=== PATIENT | male | born 1940 | race Caucasian/White ===

== ENCOUNTER 2017-04-25 09:02 | Emergency (ER) | payer MEDICARE, BC ==
[2017-04-25] MEDS ORDERED: Albuterol 0.083% 2.5 MG/3 ML Neb Soln NEB ONE (09:52)
--- NOTE | 2017-04-25 09:53 | EDM.PDOC ---
ED HPI GENERAL MEDICAL PROBLEM - General Chief Complaint: Respiratory Problem Stated Complaint: TROUBLE BREATHING Time Seen by Provider: 04/25/17 09:52 Source of Information: Reports: Patient History Limitations: Reports: No Limitations - History of Present Illness INITIAL COMMENTS - FREE TEXT/NARRATIVE: pt arrived with a history of being sob since his arrival for the summer. As soon as he arrived he was stuffed up and had periods of wheezing. Onset: Gradual Duration: Day(s): Location: Reports: Chest Associated Symptoms: Reports: Cough, Shortness of Breath - Related Data Allergies Allergy/AdvReac Type Severity Reaction Status Date / Time blue dye Allergy Intermediate Rash Verified 04/09/14 10:51 red dye Allergy Intermediate Rash Verified 04/09/14 10:50 tomato [Tomato] Allergy Intermediate Hives Verified 04/09/14 10:51 yellow dye Allergy Intermediate Rash Verified 04/09/14 10:51 Home Meds: Home Meds Bimatoprost [LUMIGAN 0.01% Ophth Soln] 1 drop EYELF BEDTIME 04/09/14 [History] Fexofenadine HCl [Ale Allergy] 60 mg PO ASDIRECTED 04/25/17 [History] Ibuprofen [Motrin] 800 mg PO ASDIRECTED 04/25/17 [History] Past Medical History HEENT History: Reports: Impaired Vision - Infectious Disease History Infectious Disease History: Reports: Chicken Pox, Measles - Past Surgical History GI Surgical History: Reports: Hernia Repair/Other Musculoskeletal Surgical History: Reports: Other (See Below) Other Musculoskeletal Surgeries/Procedures:: BACK SURGERY Social & Family History - Tobacco Use Smoking Status *Q: Former Smoker Used Tobacco, but Quit: Yes Month Tobacco Last Used: MANY YEARS AGO Second Hand Smoke Exposure: No - Caffeine Use Caffeine Use: Reports: Coffee, Soda - Alcohol Use Days Per Week of Alcohol Use: 1 Number of Drinks Per Day: 1 Total Drinks Per Week: 1 - Recreational Drug Use Recreational Drug Use: No ED ROS GENERAL - Review of Systems Review Of Systems: See Below Constitutional: Reports: No Symptoms HEENT: Reports: Other ( nose is very stuffed up. ) Respiratory: Reports: Shortness of Breath, Wheezing Cardiovascular: Reports: No Symptoms Endocrine: Reports: No Symptoms GI/Abdominal: Reports: No Symptoms : Reports: No Symptoms ED EXAM, GENERAL - Physical Exam Exam: See Below Free Text/Narrative:: pt has been more sob and wheezy since he arrived here this spring. He has not been running a temp. Exam Limited By: No Limitations General Appearance: Alert, Mild Distress Ears: Normal TMs Nose: Normal Inspection Throat/Mouth: Normal Inspection Head: Atraumatic Neck: Normal Inspection Respiratory/Chest: Decreased Breath Sounds, Wheezing Cardiovascular: Regular Rate, Rhythm GI/Abdominal: Soft, Non-Tender (Male) Exam: Deferred Rectal (Males) Exam: Deferred Back Exam: Normal Inspection Extremities: Other ( no edema) Neurological: Alert, Oriented, Normal Cognition Course - Vital Signs Last Recorded V/S: Last Vital Signs Temp 35.9 C 04/25/17 09:18 Pulse 56 L 04/25/17 09:18 Resp 18 04/25/17 09:18 BP 137/74 04/25/17 09:18 Pulse Ox 96 04/25/17 09:18 - Orders/Labs/Meds Orders: Active Orders 24 hr Category Date Time Status RT Aerosol Therapy [RC] ASDIRECTED Care 04/25/17 09:52 Active Labs: Laboratory Tests 04/25/17 04/25/17 04/25/17 Range/Units 09:58 09:58 10:23 WBC 7.6 (4.5-11.0) K/uL RBC 5.39 (4.30-5.90) M/uL Hgb 16.5 H (12.0-15.0) g/dL Hct 49.0 (40.0-54.0) % MCV 91 (80-98) fL MCH 31 (27-31) pg MCHC 34 (32-36) % Plt Count 224 (150-400) K/uL Neut % (Auto) 56 (36-66) % Lymph % (Auto) 26 (24-44) % Maries % (Auto) 10 H (2-6) % Eos % (Auto) 7 H (2-4) % Baso % (Auto) 2 H (0-1) % Sodium 142 (140-148) mmol/L Potassium 4.7 (3.6-5.2) mmol/L Chloride 106 (100-108) mmol/L Carbon Dioxide 26 (21-32) mmol/L Anion Gap 9.6 (5.0-14.0) mmol/L BUN 20 H (7-18) mg/dL Creatinine 1.3 (0.8-1.3) mg/dL Est Cr Clr Drug Dosing 51.49 mL/min Estimated GFR (MDRD) 54 L (>60) Glucose 84 (74-106) mg/dL Calcium 9.0 (8.5-10.1) mg/dL Total Bilirubin 0.6 (0.2-1.0) mg/dL AST 20 (15-37) U/L ALT 25 (12-78) U/L Alkaline Phosphatase 77 (46-116) U/L [id number] Pept 32 (5-450) pg/mL Total Protein 7.3 (6.4-8.2) g/dL Albumin 3.6 (3.4-5.0) g/dL Globulin 3.7 H (2.3-3.5) g/dL Albumin/Globulin Ratio 1.0 L (1.2-2.2) Meds: Medications Discontinued Medications Generic Name Dose Route Start Last Admin Trade Name Freq PRN Reason Stop Dose Admin Albuterol 2.5 mg 04/25/17 09:52 04/25/17 10:03 Proventil Neb Soln NEB 04/25/17 09:53 2.5 mg ONETIME ONE Administration - Re-Assessments/Exams Free Text/Narrative Re-Assessment/Exam: 04/25/17 10:47 Pt has alot of eosinophils in his cbc. He was wheezy so he was given a albuterol neb. bnp was normal.Pt was given kenalog 60mg im. He did improve with the neb. 04/25/17 10:48 04/25/17 10:51 Departure - Departure Time of Disposition: 10:57 Disposition: Home, Self-Care 01 Condition: fair Clinical Impression: Bronchitis, allergic, Bronchospasm - Discharge Information Forms: ED Department Discharge Care Plan Goals: air ot the basement and house, predisone 20mg daily for 5 days, albuterol inhaler 2 puffs qid to prevent the bronchospasm. - My Orders Last 24 Hours: My Active Orders 04/25/17 09:52 RT Aerosol Therapy [RC] ASDIRECTED - Assessment/Plan Last 24 Hours: My Active Orders 04/25/17 09:52 RT Aerosol Therapy [RC] ASDIRECTED
--- NOTE | 2017-04-25 10:26 | CR ---
Chest 2V HISTORY: No Clinical Info COMPARISON: None FINDINGS: Cardiac size and pulmonary vessels normal. No focal infiltrates. Mild hyperinflation.
[2017-04-25] MEDS ORDERED: Triamcinolone Acetonide 40 MG/ML 1 ML MDV INJECT ONE (10:56)
[2017-04-25 14:29] VITALS: BP 74/28
== END 2017-04-25 11:25 | disposition home or self-care (01) ==
LOC: JP.ED 09:02
DX: J45.909 Unspecified asthma, uncomplicated (principal); Z87.891 Personal history of nicotine dependence; Z98.890 Other specified postprocedural states; Z79.899 Other long term (current) drug therapy; Z91.018 Allergy to other foods; Z91.041 Radiographic dye allergy status
CPT/HCPCS: 36415; 71020; 80053; 83880; 85025; 94640; 96372; 99283; 99284; J3301